=== PATIENT | male | born 1950 | race Caucasian/White ===

== ENCOUNTER 2018-06-21 10:40 | Inpatient (IN) | payer BC, OTHER ==
[~2018-06-21] VITALS: Ht 167.6 cm; Wt 70.4 kg
[2018-06-21] MEDS ORDERED: SODIUM CHLORIDE 0.9% 1000ML 1,000 ML IV ONE (10:59)
[2018-06-21] MEDS ORDERED: PIPERACILLIN/TAZOBACTAM 4.5 GM/100ML D5W IV STA (10:59)
[2018-06-21] MEDS ORDERED: DIPHTHERIA/TETANUS/PERTUSSIS 0.5 ML SYR/VIAL IM. ONE (11:00)
[2018-06-21 11:20] LABS: BASO % 0.1 %; BASO ABS # 0.01 K/uL (0-0.2); HEMATOCRIT 38.5 % (42-52); HEMOGLOBIN 13.3 g/dL (14.0-18.0); IG# 0.01 K/uL (0.00-0.02); LYMPH % 8.9 %; LYMPH ABS # 0.75 K/uL (1.2-3.4); MEAN CELL VOLUME 85.9 fL (80-100); MEAN CORPUSCULAR HEMOGLOBIN 29.7 pg (25-34); MEAN CORPUSCULAR HGB CONC 34.5 g/dl (32-36); MEAN PLATELET VOLUME 10.4 fL (7.4-10.4); MONO % 9.5 %; NEUT % 81.4 %; NEUT ABS # 6.82 K/uL (1.4-6.5); PLATELET COUNT 181 K/uL (130-400); RED CELL DISTRIBUTION WIDTH CV 14.3 % (11.5-14.5); RED CELL DISTRIBUTION WIDTH SD 44.4 fL (36.4-46.3); WHITE BLOOD COUNT 8.39 K/uL (4.8-10.8)
[2018-06-21 11:30] LABS: INR 1.1 (0.9-1.1); PTT PATIENT 24.5 SECONDS (21.0-31.0)
--- NOTE | 2018-06-21 11:31 | DIAGNOSTIC IMAGING REPORT ---
CT OF THE HEAD WITHOUT CONTRAST CLINICAL HISTORY: Fall. Headache. COMPARISON STUDY: No previous studies for comparison. TECHNIQUE: Helical axial images of the head were obtained without IV contrast. Automated exposure control was utilized for the study. A dose lowering technique was utilized adhering to the principles of ALARA. FINDINGS: Exam is mildly compromised by motion artifact. No acute intracranial hemorrhage, midline shift or mass effect is present. Ventricular system is normal. Basilar cisterns are patent. There are no extra-axial collections. Minimal white matter hypodensity suggests small vessel disease. 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 A moderate size left frontotemporal scalp contusion is noted. There is no calvarial fracture. IMPRESSION: 1. No acute intracranial findings. 2. Left frontotemporal scalp contusion. No calvarial fracture. Electronically signed by: Mj Cuenca M.D. 06/21/2018 11:30 AM Dictated Date/Time: 06/21/2018 11:27 AM
[2018-06-21 11:41] LABS: CALCIUM 9.4 mg/dl (8.5-10.1); CREATININE 0.98 mg/dl (0.60-1.40); POTASSIUM 3.8 mmol/L (3.5-5.1); TOTAL PROTEIN 7.9 gm/dl (6.4-8.2)
--- NOTE | 2018-06-21 11:50 | DIAGNOSTIC IMAGING REPORT ---
CT OF THE CERVICAL SPINE WITHOUT CONTRAST CLINICAL HISTORY: Neck pain following fall. COMPARISON STUDY: No previous studies for comparison. TECHNIQUE: Helical axial images of the cervical spine were obtained without IV contrast. Sagittal and coronal reconstructions were viewed. A dose lowering technique was utilized adhering to the principles of ALARA. FINDINGS: Alignment of the cervical spine is anatomic. Craniocervical junction is intact. There is no acute cervical spine fracture. There is extensive anterior osteophytosis of the cervical spine. Facet joints are intact. There is moderate to severe multilevel disc space narrowing. There is no prevertebral edema. There is no pneumothorax within visualized portions of the lung apices. IMPRESSION: No acute cervical spine fracture or subluxation. Electronically signed by: Mj Cuenca M.D. 06/21/2018 11:48 AM Dictated Date/Time: 06/21/2018 11:45 AM
--- NOTE | 2018-06-21 12:20 | DIAGNOSTIC IMAGING REPORT ---
CHEST ONE VIEW PORTABLE CLINICAL HISTORY: Fall. Sepsis. COMPARISON STUDY: No previous studies for comparison. FINDINGS: IVC filter projects over the right upper quadrant. Right upper quadrant surgical clips are noted. Cardiac size is at the upper limits of normal. Numerous old bilateral rib fractures are noted. There is no pneumothorax or pleural effusion. No airspace opacities are present. Patient is rotated. IMPRESSION: No acute cardiopulmonary findings. Numerous old bilateral rib fractures. No pneumothorax. Electronically signed by: Mj Cuenca M.D. 06/21/2018 12:19 PM Dictated Date/Time: 06/21/2018 12:17 PM
--- NOTE | 2018-06-21 12:21 | DIAGNOSTIC IMAGING REPORT ---
L ANKLE MIN 3 VIEWS ROUTINE CLINICAL HISTORY: fall, pain COMPARISON: None FINDINGS: Alignment of the left ankle is anatomic. There is no acute fracture. Talar dome is intact. There is mild lateral ankle soft tissue swelling. Moderate vascular calcification is present. IMPRESSION: No acute fracture or dislocation within the left ankle. Electronically signed by: Mj Cuenca M.D. 06/21/2018 12:20 PM Dictated Date/Time: 06/21/2018 12:19 PM
--- NOTE | 2018-06-21 12:22 | DIAGNOSTIC IMAGING REPORT ---
L KNEE 1 OR 2 VIEWS ROUTINE CLINICAL HISTORY: fall, pain COMPARISON: None FINDINGS: Alignment of the left knee is anatomic. There is no acute fracture or joint effusion. Spurring of the patella is noted. This is chronic. There is mild osteophytosis within the left knee. IMPRESSION: No acute fracture or joint effusion of the left knee. Electronically signed by: Mj Cuenca M.D. 06/21/2018 12:21 PM Dictated Date/Time: 06/21/2018 12:20 PM
--- NOTE | 2018-06-21 12:26 | DIAGNOSTIC IMAGING REPORT ---
PELVIS 1 OR 2 VIEW ROUTINE CLINICAL HISTORY: fall, pain COMPARISON STUDY: No previous studies for comparison. FINDINGS: The sacroiliac joints and symphysis pubis are intact. There is no acute fracture within the pelvis or the hips. There is possible left thigh soft tissue swelling. A 1.2 cm ossific/calcific density projecting superior to the greater trochanter of the left femur is age indeterminate. IMPRESSION: 1. No acute fracture within the pelvis or hips. 2. Suspected left thigh soft tissue swelling/contusion. 3. 1.2 cm calcific/ossific density projecting superior to the greater trochanter of the left femur which suggests an age indeterminate but statistically old avulsion injury. Electronically signed by: Mj Cuenca M.D. 06/21/2018 12:25 PM Dictated Date/Time: 06/21/2018 12:22 PM
--- NOTE | 2018-06-21 12:27 | DIAGNOSTIC IMAGING REPORT ---
L ELBOW MIN 3 VIEWS ROUTINE CLINICAL HISTORY: fall, pain COMPARISON: None FINDINGS: Alignment of the left elbow is anatomic. IV is incidentally noted. There is no acute fracture. Spurring of the olecranon at the insertion of the triceps is noted. There is no evidence for left elbow joint effusion. There may be dorsal proximal left forearm soft tissue swelling. IMPRESSION: No acute fracture or joint effusion of the left elbow. Electronically signed by: Mj Cuenca M.D. 06/21/2018 12:25 PM Dictated Date/Time: 06/21/2018 12:25 PM
[2018-06-21] MEDS ORDERED: SODIUM CHLORIDE 0.9% 500ML 500 ML IV STA (15:47)
[2018-06-21] MEDS ORDERED: MoRPHine SULFATE 4 MG/ML 1 ML CARP\\VIAL IV STA (15:47)
--- NOTE | 2018-06-21 15:59 | EMERGENCY ROOM VISIT NOTE ---
History Report prepared by Erin: Pamela Sim Under the Supervision of: Dr. Lance Rico M.D. 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 As per the medical attendants at [facility], the patient states he fell out of bed 3 times however, the pt reports he fell out of bed once and in the shower once this morning. He denies any LOC. He states he has been at [facility] for several days. As per nursing staff, the pt tried to get out of bed multiple times last night and fell about 3 times. HPI and ROS limited secondary to the patients mental state. The charge nurse had received a phone call earlier today stating the patient fell once last night and once this morning. Source of History: patient, nursing staff, other (medical attendants at [facility]) History Limited By: other (patient's mental state) Onset: about 4 hours waiter/waitress captain Position: head, other (upper and lower extremities) Quality: other (fall) Timing: other (after slipping ) Associated Symptoms: No LOC Review of Systems See HPI for pertinent positives & negatives. HPI and ROS limited secondary to the patient's mental state. Past Medical & Surgical Medical Problems: (1) No known problems Family History Patient reports no known family medical history. Social History Smoking Status: Unknown if Ever Smoked Smokeless Tobacco Use: Unknown Housing Status: assisted living Occupation Status: retired Current/Historical Medications Scheduled Docusate Sodium (Colace), 1 CAP PO BID Folic Acid (Folic Acid), 1 MG PO DAILY Mirtazapine (Remeron), 7.5 MG PO HS Multivitamins/Minerals (Mvi With Minerals), 1 TAB PO DAILY Olanzapine (Zyprexa), 10 MG PO HS Omeprazole (Prilosec), 20 MG PO DAILY Psyllium (Metamucil), 1 PKT PO DAILY Risperidone (Risperdal), 1 MG PO HS Tamsulosin Hcl (Flomax), 0.4 MG PO QAM Thiamine Hcl (Vitamin B-1), 100 MG PO DAILY Scheduled PRN Acetaminophen Tab (Tylenol), 650 MG PO Q4 PRN for Pain Alum & Mag Hydrox-Simethicone (Mylanta), 30 ML PO QID PRN for GASTRIC DISTRESS Magnesium Hydroxide (Milk Of Magnesia), 30 ML PO DAILY PRN for Constipation Sennosides (Senokot), 1 TAB PO Q12 PRN for Allergies Coded Allergies: No Known Allergies (Unverified , 06/21/18) Physical Exam Vital Signs Date Time Temp Pulse Resp B/P (MAP) Pulse Ox O2 Delivery O2 Flow Rate FiO2 06/21/18 16:38 86 18 110/78 100 Room Air 06/21/18 15:42 90 18 106/78 98 Room Air 06/21/18 13:32 91 18 116/86 99 Room Air 06/21/18 12:15 92 18 140/88 98 Room Air 06/21/18 11:14 99 Room Air 06/21/18 10:47 37.1 94 18 136/87 99 Room Air Physical Exam GENERAL: Patient is in no acute distress. HEENT: Mucous membranes dry. Contusions with an abrasion to the forehead. 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 No scalp hematoma. NECK: No stridor, no adenopathy, no meningismus, trachea is midline. Nontender posterior C Spine LUNGS: Clear to auscultation bilaterally, no wheeze, no rhonchi, breath sounds equal. HEART: Without murmurs gallops or rubs, regular rate and rhythm. ABDOMEN: Soft, nontender, bowel sounds positive, no hernias, no peritonitis. BACK: No contusions. Nontender spine. EXTREMITIES: Multiple areas of erythema and some areas of possible contusion to all 4 extremities. The largest areas are around the L elbow, L hip, L knee, and L ankle. No gross deformity to any extremity. Movement of the joints of the extremities causes no obvious pain. GROIN: No contusions, no erythema. NEUROLOGIC: No acute motor or sensory deficits, no focal weakness. Awake and alert. SKIN: No jaundice, no diaphoresis. Medical Decision & Procedures ER Provider Diagnostic Interpretation: Radiology results as stated below per my review and radiologist interpretation: PELVIS 1 OR 2 VIEW ROUTINE CLINICAL HISTORY: fall, pain COMPARISON STUDY: No previous studies for comparison. FINDINGS: The sacroiliac joints and symphysis pubis are intact. There is no acute fracture within the pelvis or the hips. There is possible left thigh soft tissue swelling. A 1.2 cm ossific/calcific density projecting superior to the greater trochanter of the left femur is age indeterminate. IMPRESSION: 1. No acute fracture within the pelvis or hips. 2. Suspected left thigh soft tissue swelling/contusion. 3. 1.2 cm calcific/ossific density projecting superior to the greater trochanter of the left femur which suggests an age indeterminate but statistically old avulsion injury. Electronically signed by: Mj Cuenca M.D. 06/21/2018 12:25 PM L KNEE 1 OR 2 VIEWS ROUTINE CLINICAL HISTORY: fall, pain COMPARISON: None FINDINGS: Alignment of the left knee is anatomic. There is no acute fracture or joint effusion. Spurring of the patella is noted. This is chronic. There is mild osteophytosis within the left knee. IMPRESSION: No acute fracture or joint effusion of the left knee. Electronically signed by: Mj Cuenca M.D. 06/21/2018 12:[address] OF THE HEAD WITHOUT CONTRAST CLINICAL HISTORY: Fall. Headache. COMPARISON STUDY: No previous studies for comparison. TECHNIQUE: Helical axial images of the head were obtained without IV contrast. Automated exposure control was utilized for the study. A dose lowering technique was utilized adhering to the principles of ALARA. FINDINGS: Exam is mildly compromised by motion artifact. No acute intracranial hemorrhage, midline shift or mass effect is present. Ventricular system is normal. Basilar cisterns are patent. There are no extra-axial collections. Minimal white matter hypodensity suggests small vessel disease. 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 A moderate size left frontotemporal scalp contusion is noted. There is no calvarial fracture. IMPRESSION: 1. No acute intracranial findings. 2. Left frontotemporal scalp contusion. No calvarial fracture. Electronically signed by: Mj Cuenca M.D. 06/21/2018 11:30 AM L ELBOW MIN 3 VIEWS ROUTINE CLINICAL HISTORY: fall, pain COMPARISON: None FINDINGS: Alignment of the left elbow is anatomic. IV is incidentally noted. There is no acute fracture. Spurring of the olecranon at the insertion of the triceps is noted. There is no evidence for left elbow joint effusion. There may be dorsal proximal left forearm soft tissue swelling. IMPRESSION: No acute fracture or joint effusion of the left elbow. Electronically signed by: Mj Cuenca M.D. 06/21/2018 12:25 PM CHEST ONE VIEW PORTABLE CLINICAL HISTORY: Fall. Sepsis. COMPARISON STUDY: No previous studies for comparison. FINDINGS: IVC filter projects over the right upper quadrant. Right upper quadrant surgical clips are noted. Cardiac size is at the upper limits of normal. Numerous old bilateral rib fractures are noted. There is no pneumothorax or pleural effusion. No airspace opacities are present. Patient is rotated. IMPRESSION: No acute cardiopulmonary findings. Numerous old bilateral rib fractures. No pneumothorax. Electronically signed by: Mj Cuenca M.D. 06/21/2018 12:[address] OF THE CERVICAL SPINE WITHOUT CONTRAST CLINICAL HISTORY: Neck pain following fall. COMPARISON STUDY: No previous studies for comparison. TECHNIQUE: Helical axial images of the cervical spine were obtained without IV contrast. Sagittal and coronal reconstructions were viewed. A dose lowering technique was utilized adhering to the principles of ALARA. FINDINGS: Alignment of the cervical spine is anatomic. Craniocervical junction is intact. There is no acute cervical spine fracture. There is extensive anterior osteophytosis of the cervical spine. Facet joints are intact. There is moderate to severe multilevel disc space narrowing. There is no prevertebral edema. There is no pneumothorax within visualized portions of the lung apices. IMPRESSION: No acute cervical spine fracture or subluxation. Electronically signed by: Mj Cuenca M.D. 06/21/2018 11:48 AM L ANKLE MIN 3 VIEWS ROUTINE CLINICAL HISTORY: fall, pain COMPARISON: None FINDINGS: Alignment of the left ankle is anatomic. There is no acute fracture. Talar dome is intact. There is mild lateral ankle soft tissue swelling. Moderate vascular calcification is present. IMPRESSION: No acute fracture or dislocation within the left ankle. Electronically signed by: Mj Cuenca M.D. 06/21/2018 12:20 PM Laboratory Results 06/21/18 11:08 Test 06/21/18 11:08 06/21/18 11:15 06/21/18 12:25 06/21/18 16:38 RDW Standard Deviation 44.4 fL (36.4-46.3) RDW Coefficient of Variation 14.3 % (11.5-14.5) White Blood Count 8.39 K/uL (4.8-10.8) Red Blood Count 4.48 M/uL (4.7-6.1) Hemoglobin 13.3 g/dL (14.0-18.0) Hematocrit 38.5 % (42-52) Mean Corpuscular Volume 85.9 fL (80-100) Mean Corpuscular Hemoglobin 29.7 pg (25-34) Mean Corpuscular Hemoglobin Concent 34.5 g/dl (32-36) Platelet Count 181 K/uL (130-400) Mean Platelet Volume 10.4 fL (7.4-10.4) Neutrophils (%) (Auto) 81.4 % Lymphocytes (%) (Auto) 8.9 % Monocytes (%) (Auto) 9.5 % Eosinophils (%) (Auto) 0.0 % Basophils (%) (Auto) 0.1 % Neutrophils # (Auto) 6.82 K/uL (1.4-6.5) Lymphocytes # (Auto) 0.75 K/uL (1.2-3.4) Monocytes # (Auto) 0.80 K/uL (0.11-0.59) Eosinophils # (Auto) 0.00 K/uL (0-0.5) Basophils # (Auto) 0.01 K/uL (0-0.2) Immature Granulocyte % (Auto) 0.1 % Immature Granulocyte # (Auto) 0.01 K/uL (0.00-0.02) Erythrocyte Sedimentation Rate 10 mm/hr (0-14) Prothrombin Time 11.2 SECONDS (9.0-12.0) Prothromb Time International Ratio 1.1 (0.9-1.1) Activated Partial Thromboplast Time 24.5 SECONDS (21.0-31.0) Partial Thromboplastin Ratio 0.9 Anion Gap 8.0 mmol/L (3-11) Est Creatinine Clear Calc Drug Dose 67.8 ml/min Estimated GFR () 93.4 Estimated GFR (Non- 80.6 BUN/Creatinine Ratio 25.7 (10-20) Calcium Level 9.4 mg/dl (8.5-10.1) Magnesium Level 1.8 mg/dl (1.8-2.4) Total Bilirubin 1.5 mg/dl (0.2-1) Aspartate Amino Transf (AST/SGOT) 137 U/L (15-37) Alanine Aminotransferase (ALT/SGPT) 45 U/L (12-78) Alkaline Phosphatase 115 U/L (45-117) Total Creatine Kinase 7344 U/L (39-308) C-Reactive Protein 2.85 mg/dl (0-0.29) Total Protein 7.9 gm/dl (6.4-8.2) Albumin 4.0 gm/dl (3.4-5.0) Globulin 3.9 gm/dl (2.5-4.0) Albumin/Globulin Ratio 1.0 (0.9-2) Bedside Lactic Acid Venous 1.90 mmol/L (0.90-1.70) Urine Color DK YELLOW Urine Appearance CLOUDY (CLEAR) Urine pH 5.0 (4.5-7.5) Urine Specific Ulen 1.024 (1.000-1.030) Urine Protein 1+ (NEG) Urine Glucose (UA) NEG (NEG) Urine Ketones 2+ (NEG) Urine Occult Blood 2+ (NEG) Urine Nitrite NEG (NEG) Urine Bilirubin NEG (NEG) Urine Urobilinogen NEG (NEG) Urine Leukocyte Esterase TRACE (NEG) Urine WBC (Auto) 1-5 /hpf (0-5) Urine RBC (Auto) 5-10 /hpf (0-4) Urine Hyaline Casts (Auto) 10-30 /lpf (0-5) Urine Epithelial Cells (Auto) 10-20 /lpf (0-5) Urine Bacteria (Auto) NEG (NEG) Urine Pathogenic Casts 0-3 GRANULAR CASTS /lpf (0) Laboratory results reviewed by me. Medications Administered Medications (Trade) Dose Ordered Sig/Eric Route Start Time Stop Time Status Last Admin Dose Admin Sodium Chloride 1,000 ml @ 999 mls/hr Q1H1M ONCE IV 06/21/18 10:59 06/21/18 11:59 DC 06/21/18 11:29 999 MLS/HR Piperacillin Sod/ Tazobactam Sod (Zosyn Iv) 4.5 gm ONE STAT IV 06/21/18 10:59 06/21/18 11:05 DC 06/21/18 11:29 4.5 GM Diphtheria/ Pertussis/Tetanus Vacc (Adacel Inj) 0.5 ml ONCE ONCE IM. 06/21/18 11:00 06/21/18 11:05 DC 06/21/18 11:36 0.5 ML Sodium Chloride 500 ml @ 999 mls/hr Q31M STAT IV 06/21/18 15:47 06/21/18 16:17 DC 06/21/18 15:58 999 MLS/HR Morphine Sulfate (MoRPHine SULFATE INJ) 4 mg NOW STAT IV 06/21/18 15:47 06/21/18 15:49 DC 06/21/18 15:57 4 MG ECG Per My Interpretation Indication: other (fall) Rate (beats per minute): 97 Rhythm: normal sinus Findings: RBBB, other (no ST elevation, no PVCs) ED Course 1051: The patient was evaluated in room C4. A complete history and physical exam was performed. 1059: Ordered Zosyn IV 4.5 gm IV, Sodium Chloride 1000 ml @ 999 mls/hr IV 1100: Ordered Adacel Inj 0.5 ml IM 1313: I reevaluated the patient at this time. He is resting comfortably at this time. 1324: Discussed the patient's case with Dr. Tobias, [facility] Hospitalist. The patient will be evaluated for further management. Medical Decision Differential diagnosis: Etiologies such as sepsis, bacteremia, cellulitis, intracranial injury, cervical spine injury, extremity fracture, dehydration, electrolyte imbalance, anemia, as well as others were entertained. There is no leukocytosis or worrisome anemia. Sed rate is not elevated but the CRP is slightly high. No significant electrolyte abnormality or renal failure. There were a few very subtle liver enzyme elevations. Lactic acid level was not significantly elevated making severe sepsis less likely. Total CK was elevated consistent with rhabdomyolysis. Urinalysis did not show evidence for infection. Brain CT showed no acute bleed or mass-effect. C-spine CT showed no acute fracture. EKG showed a sinus rhythm, no acute ischemia. Chest film does not show pneumonia or CHF. Pelvis, left hip, left knee and left ankle films were done, no fractures were seen. Patient received IV saline, he was given IV morphine for pain. He received IV Zosyn as antibiotic coverage. He was given an Adacel booster IM. The patient presents with several falls, the story for what actually happened is unclear, the patient is a poor historian. His contusions appeared to have some cellulitis forming. Given the rhabdomyolysis, given the cellulitis, given his frequent falls, a hospital stay is warranted. I spoke to the patient and to case management. The on-call hospitalist was consulted. Head Trauma GCS Score: 14 Medication Reconcilliation Current Medication List: was personally reviewed by me Blood Pressure Screening Patient's blood pressure: Normal blood pressure Blood pressure disposition: Did not require urgent referral Consults Time Called: 1322 Consulting Physician: Dr. Tobias [facility] Hospitalist Returned Call: [phone] Discussed the patient's case with Dr. Tobias [facility] Hospitalist. The patient will be evaluated for further management. Impression Primary Impression: Cellulitis Additional Impressions: Multiple contusions Multiple falls Dehydration Schizophrenia Rhabdomyolysis Scribe Attestation The scribe's documentation has been prepared under my direction and personally reviewed by me in its entirety. I confirm that the note above accurately reflects all work, treatment, procedures, and medical decision making performed by me. Departure Information Dispostion Being Evaluated By Hospitalist (Dr. Tobias [facility] Hospitalist) Referrals No Doctor, Assigned (PCP) Patient Instructions My [facility] Problem Qualifiers
[2018-06-21] MEDS ORDERED: MOML PO ×2 (16:29)
[2018-06-21] MEDS ORDERED: OLAN10TA11 PO ×2 (16:29)
[2018-06-21] MEDS ORDERED: SENN-63 PO ×2 (16:29)
[2018-06-21] MEDS ORDERED: PRLSR20 PO ×2 (16:29)
[2018-06-21] MEDS ORDERED: TAMS0.4C38 PO ×2 (16:29)
[2018-06-21] MEDS ORDERED: THIA100T10 PO ×2 (16:29)
[2018-06-21] MEDS ORDERED: MULT-513 PO ×2 (16:29)
[2018-06-21] MEDS ORDERED: ALUM-30 PO ×2 (16:29)
[2018-06-21] MEDS ORDERED: RISP1TAB68 PO ×2 (16:29)
[2018-06-21] MEDS ORDERED: MIRT15TA3 PO (16:29)
[2018-06-21] MEDS ORDERED: PSYL48.59 PO ×2 (16:29)
[2018-06-21] MEDS ORDERED: ACET-1693 PO ×2 (16:29)
[2018-06-21] MEDS ORDERED: FLV1 PO ×2 (16:29)
[2018-06-21] MEDS ORDERED: DOCU-94 PO ×2 (16:29)
[2018-06-21] MEDS ORDERED: MAGNESIUM HYDROXIDE SUSP 30 ML UDC PO PRN (16:45)
[2018-06-21] MEDS ORDERED: ONDANSETRON INJ 2 MG/ML 2 ML VIAL IV PRN (16:45)
[2018-06-21] MEDS ORDERED: ALUMINUM/MAGNESIUM/SIMETH (MAALOX MAX) 30 ML UDC PO PRN (16:45)
--- NOTE | 2018-06-21 17:42 | History and Physical ---
History & Physical Date & Time of Service: Jun 21, 2018 at 17:11 Chief Complaint: Fall/ Head,Arm Abrasion/Contusions Primary Care Physician: No Doctor, Assigned History of Present Illness Source: patient, hospital records, other 67 y/o M with a history of BPH, GERD, depression and psychosis. Presents from a mental health facility for multiple falls. He was transferred from the [facility] after voluntarily committing himself for depression, suicidal ideation and hallucinations. The pt exhibits an unusual affect, although he does seem to display knowledge of his medical history and awareness of his current conditions. Per the staff at the facility, he had fallen out of bed multiple times the prior dahlia and twice during the day as well. He was found on the ground, although his falls were not witnessed. He has an unusual distribution of multiple inflamed, presumably traumatized areas of skin including over his elbows, wrists, shins, forehead. There is no associated scaling or joint deformity. A skeletal survey including a head CT did not reveal any fractures, although multiple contusions are confirmed. Initial labs are notable for rhabdomyolysis. Past Medical/Surgical History 1) Psychotic disorder - reported as schizophrenia 2) Major depressive disorder with suicidal ideation 3) BPH 4) GERD 5) History of alcohol abuse Family History Patient reports no known family medical history. Mother due to lung CA Father due to [place] Social History States he quit smoking and drinking one year prior. Admits to history of alcohol abuse and has a 25 pack year smoking history. Smoking Status: Former Smoker Smokeless Tobacco Use: Unknown Occupational Status: retired Allergies Coded Allergies: No Known Allergies (Unverified , 06/21/18) Home Medications Scheduled Docusate Sodium (Colace), 1 CAP PO BID Folic Acid (Folic Acid), 1 MG PO DAILY Mirtazapine (Remeron), 7.5 MG PO HS Multivitamins/Minerals (Mvi With Minerals), 1 TAB PO DAILY Olanzapine (Zyprexa), 10 MG PO HS Omeprazole (Prilosec), 20 MG PO DAILY Psyllium (Metamucil), 1 PKT PO DAILY Risperidone (Risperdal), 1 MG PO HS Tamsulosin Hcl (Flomax), 0.4 MG PO QAM Thiamine Hcl (Vitamin B-1), 100 MG PO DAILY Scheduled PRN Acetaminophen Tab (Tylenol), 650 MG PO Q4 PRN for Pain Alum & Mag Hydrox-Simethicone (Mylanta), 30 ML PO QID PRN for GASTRIC DISTRESS Magnesium Hydroxide (Milk Of Magnesia), 30 ML PO DAILY PRN for Constipation Sennosides (Senokot), 1 TAB PO Q12 PRN for Review of Systems May be an unreliable historian Constitutional: No fever, No chills, No sweats Eyes: No worsening of vision ENT: No hearing loss, No unusual epistaxis, No nasal symptoms Respiratory: No cough, No sputum, No wheezing Cardiovascular: No chest pain, No orthopnea, No PND Abdomen: No pain, No nausea, No vomiting Musculoskeletal: + joint pain, + muscle pain (due to trauma) Genitourinary - Male: No hematuria, No dysuria Neurologic: No memory loss, No paralysis, No weakness Psychiatric: + depression symptoms, + problem reported (psychosis and SI reprted) Hematologic / Lymphatic: No abnormal bleeding/bruising Integumentary: + problem reported (multiple contusions/abrasions) Physical Exam Vital Signs Date Time Temp Pulse Resp B/P (MAP) Pulse Ox O2 Delivery O2 Flow Rate FiO2 06/21/18 16:38 86 18 110/78 100 Room Air 06/21/18 15:42 90 18 106/78 98 Room Air 06/21/18 13:32 91 18 116/86 99 Room Air 06/21/18 12:15 92 18 140/88 98 Room Air 06/21/18 11:14 99 Room Air 06/21/18 10:47 37.1 94 18 136/87 99 Room Air General Appearance: WD/WN, no apparent distress Head: + pertinent finding (COnution - L upper forehead) Eyes: normal inspection ENT: normal ENT inspection, pharynx normal Neck: supple, no JVD Respiratory/Chest: chest non-tender, lungs clear, normal breath sounds Cardiovascular: regular rate, rhythm, no edema, no gallop Abdomen/GI: normal bowel sounds, non tender, soft Back: normal inspection, no CVA tenderness Extremities/Musculoskelatal: + pertinent finding (Contusions, bruising about the extremities) 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, no motor/sensory deficits, + pertinent finding (Generally slow in answering questions, answers appropriately , chronic facial asymetry) Skin: + pertinent finding (Contusions, bruising about the extremities and head) Diagnostics Laboratory Results Results Past 24 Hours Test 06/21/18 11:08 06/21/18 11:15 06/21/18 12:25 06/21/18 16:38 Range/Units White Blood Count 8.39 4.8-10.8 K/uL Red Blood Count 4.48 4.7-6.1 M/uL Hemoglobin 13.3 14.0-18.0 g/dL Hematocrit 38.5 42-52 % Mean Corpuscular Volume 85.9 80-100 fL Mean Corpuscular Hemoglobin 29.7 25-34 pg Mean Corpuscular Hemoglobin Concent 34.5 32-36 g/dl Platelet Count 181 130-400 K/uL Mean Platelet Volume 10.4 7.4-10.4 fL Neutrophils (%) (Auto) 81.4 % Lymphocytes (%) (Auto) 8.9 % Monocytes (%) (Auto) 9.5 % Eosinophils (%) (Auto) 0.0 % Basophils (%) (Auto) 0.1 % Neutrophils # (Auto) 6.82 1.4-6.5 K/uL Lymphocytes # (Auto) 0.75 1.2-3.4 K/uL Monocytes # (Auto) 0.80 0.11-0.59 K/uL Eosinophils # (Auto) 0.00 0-0.5 K/uL Basophils # (Auto) 0.01 0-0.2 K/uL RDW Standard Deviation 44.4 36.4-46.3 fL RDW Coefficient of Variation 14.3 11.5-14.5 % Immature Granulocyte % (Auto) 0.1 % Immature Granulocyte # (Auto) 0.01 0.00-0.02 K/uL Erythrocyte Sedimentation Rate 10 0-14 mm/hr Prothrombin Time 11.2 9.0-12.0 SECONDS Prothromb Time International Ratio 1.1 0.9-1.1 Activated Partial Thromboplast Time 24.5 21.0-31.0 SECONDS Partial Thromboplastin Ratio 0.9 Sodium Level 141 136-145 mmol/L Potassium Level 3.8 3.5-5.1 mmol/L Chloride Level 109 98-107 mmol/L Carbon Dioxide Level 24 21-32 mmol/L Anion Gap 8.0 3-11 mmol/L Blood Urea Nitrogen 25 7-18 mg/dl Creatinine 0.98 0.60-1.40 mg/dl Est Creatinine Clear Calc Drug Dose 67.8 ml/min Estimated GFR () 93.4 Estimated GFR (Non- 80.6 BUN/Creatinine Ratio 25.7 10-20 Random Glucose 109 70-99 mg/dl Calcium Level 9.4 8.5-10.1 mg/dl Magnesium Level 1.8 1.8-2.4 mg/dl Total Bilirubin 1.5 0.2-1 mg/dl Aspartate Amino Transf (AST/SGOT) 137 15-37 U/L Alanine Aminotransferase (ALT/SGPT) 45 12-78 U/L Alkaline Phosphatase 115 45-117 U/L Total Creatine Kinase 7344 39-308 U/L C-Reactive Protein 2.85 0-0.29 mg/dl Total Protein 7.9 6.4-8.2 gm/dl Albumin 4.0 3.4-5.0 gm/dl Globulin 3.9 2.5-4.0 gm/dl Albumin/Globulin Ratio 1.0 0.9-2 Bedside Lactic Acid Venous 1.90 0.90-1.70 mmol/L Urine Color DK YELLOW Urine Appearance CLOUDY CLEAR Urine pH 5.0 4.5-7.5 Urine Specific [place] 1.024 1.000-1.030 Urine Protein 1+ NEG Urine Glucose (UA) NEG NEG Urine Ketones 2+ NEG Urine Occult Blood 2+ NEG Urine Nitrite NEG NEG Urine Bilirubin NEG NEG Urine Urobilinogen NEG NEG Urine Leukocyte Esterase TRACE NEG Urine WBC (Auto) 1-5 0-5 /hpf Urine RBC (Auto) 5-10 0-4 /hpf Urine Hyaline Casts (Auto) 10-30 0-5 /lpf Urine Epithelial Cells (Auto) 10-20 0-5 /lpf Urine Bacteria (Auto) NEG NEG Urine Pathogenic Casts 0-3 GRANULAR CASTS 0 /lpf Microbiology Results 06/21/18 Blood Culture, Received Pending 06/21/18 Blood Culture, Received Pending Diagnostic Radiology Head CT: . Left frontotemporal scalp contusion. No calvarial fracture. XR elbow: . No fracture. There may be dorsal proximal left forearm soft tissue swelling. Ankle XR: Mild lateral ankle soft tissue swelling. Moderate vascular calcification is present. Impression Assessment and Plan 67 y/o M with a history of BPH, GERD, depression and psychosis. Presents from a mental health facility for multiple falls. He was transferred from the [facility] after voluntarily committing himself for depression, suicidal ideation and hallucinations. The pt exhibits an unusual affect, although he does seem to display knowledge of his medical history and awareness of his current conditions. Per the staff at the facility, he had fallen out of bed multiple times the prior dahlia and twice during the day as well. He was found on the ground, although his falls were not witnessed. He has an unusual distribution of multiple inflamed, presumably traumatized areas of skin including over his elbows, wrists, shins, forehead. There is no associated scaling or joint deformity. A skeletal survey including a head CT did not reveal any fractures, although multiple contusions are confirmed. Initial labs are notable for rhabdomyolysis. 1) Falls and contusions - the distribution of injury is suspicious for self- inflicted injury. All injured areas are accessible to the pt. He would have BL contusions encompassing the entirety of both shins due to simple falls. We will place the pt on one to one obs. PT/OT will be consulted to assess his gait. It would be prudent to discuss this possibility with the psychiatrist at his facility prior to discharging the pt. We had considered a rheumatic condition to explain his findings, however, imaging does appear to confirm soft tissue trauma. It is also worth considering that he may be developing some cellulitis over the traumatized areas which are warm to touch. He does have a slightly elevated lactic acid which may be due to dehydration. He received Zosyn in the ER. I have outlined the majority of affected areas and we would consider further antibiotic treatment if there is spread, or if he develops leukocytosis or a fever. 2) Rhabdo - IVF provided, electrolytes will be trended - this is mild to moderate rhabdo and unlikely to progress 3) Psychosis - depression - he was recently removed from 1 to 1 obs at the facility and is improving in this regard. We have continued 1 to 1 due to suspicion of self harm. We will continue his Zyprexa, Risperdal and Remeron. 4) BPH - cont Flomax 5) GERD - cont PPi Full code - SCDs total time for this admit including review of labs, meds, imaging, records - discussion with pt and ER attending - 40 min Resuscitation Status VTE Prophylaxis Will order VTE Prophylaxis: Yes
[2018-06-21 18:00] LABS: HEMATOCRIT 34.7 % (42-52); MEAN CELL VOLUME 85.9 fL (80-100); MEAN CORPUSCULAR HEMOGLOBIN 29.7 pg (25-34); MEAN CORPUSCULAR HGB CONC 34.6 g/dl (32-36); MEAN PLATELET VOLUME 10.1 fL (7.4-10.4); PLATELET COUNT 161 K/uL (130-400); RED CELL DISTRIBUTION WIDTH CV 14.4 % (11.5-14.5); RED CELL DISTRIBUTION WIDTH SD 44.7 fL (36.4-46.3); WHITE BLOOD COUNT 6.95 K/uL (4.8-10.8)
[2018-06-21] MEDS ORDERED: POLYETHYLENE (MIRALAX) 17 GM PACK PO PRN (18:00)
[2018-06-21 18:11] VITALS: BP 133/79; PULSE 89; O2SAT 95; Ht 167.6 cm; Wt 70.4 kg
[2018-06-21] MEDS: SODIUM CHLORIDE 0.9% 1000ML 1,000 ML IV SCH (18:31)
[2018-06-21 18:43] LABS: CALCIUM 8.2 mg/dl (8.5-10.1); CREATININE 0.84 mg/dl (0.60-1.40); POTASSIUM 3.5 mmol/L (3.5-5.1)
[2018-06-21] MEDS: ACETAMINOPHEN 325 MG TAB PO PRN (19:53)
[2018-06-21] MEDS: DOCUSATE SODIUM 100 MG CAP PO SCH (19:53)
[2018-06-21] MEDS: RISPERIDONE 1 MG TAB PO SCH (19:53)
[2018-06-21] MEDS: MIRTAZAPINE TAB 15 MG TAB PO SCH (19:53)
[2018-06-21] MEDS: OLANZAPINE 10 MG TAB PO SCH (19:53)
[2018-06-21 23:00] VITALS: BP 137/79; PULSE 18; PULSE 74; TEMP 36.5; O2SAT 91
[2018-06-21] MEDS: MoRPHine SULFATE 2 MG/ML CARP IV PRN (23:06)
[2018-06-22 01:18] LABS: CALCIUM 7.8 mg/dl (8.5-10.1); CREATININE 0.99 mg/dl (0.60-1.40); POTASSIUM 3.2 mmol/L (3.5-5.1)
[2018-06-22] MEDS: SODIUM CHLORIDE 0.9% 1000ML 1,000 ML IV SCH ×2 (02:05→08:01)
[2018-06-22 07:13] LABS: CALCIUM 7.5 mg/dl (8.5-10.1); CREATININE 0.87 mg/dl (0.60-1.40); PHOSPHORUS 2.3 mg/dl (2.5-4.9)
[2018-06-22 07:25] VITALS: BP 109/71; PULSE 95; TEMP 36.6; O2SAT 98
[2018-06-22 08:00] VITALS: O2SAT 98
[2018-06-22] MEDS: PANTOprazole SOD 40 MG TAB PO SCH (08:02)
[2018-06-22] MEDS: DOCUSATE SODIUM 100 MG CAP PO SCH ×2 (08:02→19:51)
[2018-06-22] MEDS: TAMSULOSIN HCL 0.4 MG CAP PO SCH (08:06)
[2018-06-22] MEDS: PSYLLIUM 58.6% PWD PACK S\\F PO SCH (08:06)
[2018-06-22] MEDS: THIAMINE HCL 100 MG TAB PO SCH (08:06)
--- NOTE | 2018-06-22 08:39 | Progress Note ---
Subjective Date of Service: Jun 22, 2018. Subjective this pt is improving but nurses reported that last pm was having some visual hallucinations. pt did not progress with concerns for cellulitis, pt has no new issues but is planning on retuning to [place] area, Case management is concerned to have pt home without good local support. Pt has given name of his daughter Problem List Medical Problems: (1) Cellulitis Status: Acute (2) Dehydration Status: Acute (3) Multiple contusions Status: Acute (4) Multiple falls Status: Acute (5) Rhabdomyolysis Status: Acute (6) Schizophrenia Status: Acute Review of Systems Constitutional: + weakness, + fatigue, No fever, No chills Respiratory: No cough, No shortness of breath Cardiac: No chest pain, No edema Abdomen: No pain, No nausea, No vomiting, No diarrhea Psychiatric: + depression symptoms, + anxiety Heme: + abnormal bleeding/bruising, No clotting problems Objective Vital Signs Date Time Temp Pulse Resp B/P (MAP) Pulse Ox O2 Delivery O2 Flow Rate FiO2 06/22/18 07:25 36.6 95 16 109/71 (84) 98 06/21/18 23:00 36.5 74 18 137/79 (98) 91 Room Air 06/21/18 22:38 Room Air 06/21/18 18:11 89 21 133/79 95 Room Air 06/21/18 17:36 95 18 111/76 98 Room Air 06/21/18 16:38 86 18 110/78 100 Room Air 06/21/18 15:42 90 18 106/78 98 Room Air 06/21/18 13:32 91 18 116/86 99 Room Air 06/21/18 12:15 92 18 140/88 98 Room Air 06/21/18 11:14 99 Room Air 06/21/18 10:47 37.1 94 18 136/87 99 Room Air Physical Exam General Appearance: WD/WN, + mild distress Eyes: normal inspection, sclerae normal Neck: supple, no JVD Respiratory/Chest: chest non-tender, lungs clear, normal breath sounds Cardiovascular: regular rate, rhythm, no murmur Abdomen: normal bowel sounds, non tender, soft Neurologic/Psychiatric: alert, oriented x 3 Skin: + pertinent finding (bruising and wounds with different stages of healing ) Laboratory Results Last 24 Hours Test 06/21/18 11:08 06/21/18 11:15 06/21/18 12:25 06/21/18 17:48 White Blood Count 8.39 K/uL Red Blood Count 4.48 M/uL Hemoglobin 13.3 g/dL Hematocrit 38.5 % Mean Corpuscular Volume 85.9 fL Mean Corpuscular Hemoglobin 29.7 pg Mean Corpuscular Hemoglobin Concent 34.5 g/dl Platelet Count 181 K/uL Mean Platelet Volume 10.4 fL Neutrophils (%) (Auto) 81.4 % Lymphocytes (%) (Auto) 8.9 % Monocytes (%) (Auto) 9.5 % Eosinophils (%) (Auto) 0.0 % Basophils (%) (Auto) 0.1 % Neutrophils # (Auto) 6.82 K/uL Lymphocytes # (Auto) 0.75 K/uL Monocytes # (Auto) 0.80 K/uL Eosinophils # (Auto) 0.00 K/uL Basophils # (Auto) 0.01 K/uL RDW Standard Deviation 44.4 fL RDW Coefficient of Variation 14.3 % Immature Granulocyte % (Auto) 0.1 % Immature Granulocyte # (Auto) 0.01 K/uL Erythrocyte Sedimentation Rate 10 mm/hr Prothrombin Time 11.2 SECONDS Prothromb Time International Ratio 1.1 Activated Partial Thromboplast Time 24.5 SECONDS Partial Thromboplastin Ratio 0.9 Sodium Level 141 mmol/L Potassium Level 3.8 mmol/L Chloride Level 109 mmol/L Carbon Dioxide Level 24 mmol/L Anion Gap 8.0 mmol/L Blood Urea Nitrogen 25 mg/dl Creatinine 0.98 mg/dl Est Creatinine Clear Calc Drug Dose 67.8 ml/min Estimated GFR () 93.4 Estimated GFR (Non- 80.6 BUN/Creatinine Ratio 25.7 Random Glucose 109 mg/dl Calcium Level 9.4 mg/dl Magnesium Level 1.8 mg/dl Total Bilirubin 1.5 mg/dl Aspartate Amino Transf (AST/SGOT) 137 U/L Alanine Aminotransferase (ALT/SGPT) 45 U/L Alkaline Phosphatase 115 U/L Total Creatine Kinase 7344 U/L C-Reactive Protein 2.85 mg/dl Total Protein 7.9 gm/dl Albumin 4.0 gm/dl Globulin 3.9 gm/dl Albumin/Globulin Ratio 1.0 Bedside Lactic Acid Venous 1.90 mmol/L Urine Color DK YELLOW Urine Appearance CLOUDY Urine pH 5.0 Urine Specific [place] 1.024 Urine Protein 1+ Urine Glucose (UA) NEG Urine Ketones 2+ Urine Occult Blood 2+ Urine Nitrite NEG Urine Bilirubin NEG Urine Urobilinogen NEG Urine Leukocyte Esterase TRACE Urine WBC (Auto) 1-5 /hpf Urine RBC (Auto) 5-10 /hpf Urine Hyaline Casts (Auto) 10-30 /lpf Urine Epithelial Cells (Auto) 10-20 /lpf Urine Bacteria (Auto) NEG Urine Pathogenic Casts 0-3 GRANULAR CASTS /lpf Lactic Acid Level 0.8 mmol/L Test 06/21/18 17:50 06/22/18 00:27 06/22/18 06:07 White Blood Count 6.95 K/uL Red Blood Count 4.04 M/uL Hemoglobin 12.0 g/dL Hematocrit 34.7 % Mean Corpuscular Volume 85.9 fL Mean Corpuscular Hemoglobin 29.7 pg Mean Corpuscular Hemoglobin Concent 34.6 g/dl RDW Standard Deviation 44.7 fL RDW Coefficient of Variation 14.4 % Platelet Count 161 K/uL Mean Platelet Volume 10.1 fL Erythrocyte Sedimentation Rate 5 mm/hr Sodium Level 143 mmol/L 142 mmol/L 142 mmol/L Potassium Level 3.5 mmol/L 3.2 mmol/L 3.0 mmol/L Chloride Level 110 mmol/L 110 mmol/L 110 mmol/L Carbon Dioxide Level 24 mmol/L 23 mmol/L 22 mmol/L Anion Gap 9.0 mmol/L 9.0 mmol/L 10.0 mmol/L Blood Urea Nitrogen 20 mg/dl 19 mg/dl 14 mg/dl Creatinine 0.84 mg/dl 0.99 mg/dl 0.87 mg/dl Est Creatinine Clear Calc Drug Dose 79.1 ml/min 67.1 ml/min 76.3 ml/min Estimated GFR () 106.5 92.2 105.0 Estimated GFR (Non- 91.9 79.6 90.6 BUN/Creatinine Ratio 23.5 19.5 15.9 Random Glucose 104 mg/dl 98 mg/dl 83 mg/dl Calcium Level 8.2 mg/dl 7.8 mg/dl 7.5 mg/dl Phosphorus Level 3.0 mg/dl 2.0 mg/dl 2.3 mg/dl Magnesium Level 1.8 mg/dl 1.8 mg/dl Total Creatine Kinase 6529 U/L 6411 U/L Assessment and Plan 67 y/o M Presents from a mental health facility for multiple unwitnessed falls , has a history of BPH, GERD, depression and psychosis. A skeletal survey including a head CT did not reveal any fractures, although multiple contusions are confirmed. Initial labs are notable for rhabdomyolysis. He was transferred from the [facility] after voluntarily committing himself for depression, suicidal ideation and hallucinations. Falls and contusions - the distribution of injury is suspicious for self- inflicted injury. PT/OT will be consulted to assess his gait. Possible Cellulitis associated with his trauma, He received Zosyn in the ER. Outlining of the majority of affected areas on admission and consider further antibiotic treatment if there is spread, or if he develops leukocytosis or a fever. Rhabdomyolysis from tissue trauma - IVF provided, electrolytes will be trended - this is mild to moderate rhabdo and unlikely to progress Psychosis - depression - he was recently removed from 1 to 1 obs at the facility and is improving in this regard. We have continued 1 to 1 due to suspicion of self harm. We will continue his Zyprexa, Risperdal and Remeron. BPH - cont Flomax GERD - cont PPi Full code - SCDs
[2018-06-22] MEDS: NSS + 20MEQ KCL 1000ML 1,000 ML IV SCH ×2 (10:57→19:51)
[2018-06-22 15:50] VITALS: BP 95/65; PULSE 88; TEMP 36.9; O2SAT 100
[2018-06-22] MEDS: MIRTAZAPINE TAB 15 MG TAB PO SCH (19:51)
[2018-06-22] MEDS: RISPERIDONE 1 MG TAB PO SCH (19:51)
[2018-06-22] MEDS: OLANZAPINE 10 MG TAB PO SCH (19:51)
[2018-06-22] MEDS: POTASSIUM CHLORIDE 20 MEQ TABCR PO SCH (19:52)
[2018-06-22] MEDS: MoRPHine SULFATE 2 MG/ML CARP IV PRN (23:28)
[2018-06-22 23:33] VITALS: BP 114/73; PULSE 97; TEMP 37.1; O2SAT 97
[2018-06-23] MEDS: NSS + 20MEQ KCL 1000ML 1,000 ML IV SCH (05:52)
[2018-06-23 07:30] VITALS: BP 103/65; PULSE 87; TEMP 37; O2SAT 96
[2018-06-23] MEDS: PSYLLIUM 58.6% PWD PACK S\\F PO SCH (07:48)
[2018-06-23] MEDS: POTASSIUM CHLORIDE 20 MEQ TABCR PO SCH ×2 (07:48→20:23)
[2018-06-23] MEDS: PANTOprazole SOD 40 MG TAB PO SCH (07:49)
[2018-06-23] MEDS: TAMSULOSIN HCL 0.4 MG CAP PO SCH (07:49)
[2018-06-23] MEDS: THIAMINE HCL 100 MG TAB PO SCH (07:49)
[2018-06-23] MEDS: DOCUSATE SODIUM 100 MG CAP PO SCH ×2 (07:49→20:22)
[2018-06-23 08:00] VITALS: O2SAT 96
[2018-06-23 09:43] LABS: CALCIUM 7.6 mg/dl (8.5-10.1); CREATININE 0.67 mg/dl (0.60-1.40); POTASSIUM 3.8 mmol/L (3.5-5.1)
[2018-06-23 15:06] VITALS: BP 143/81; PULSE 118; TEMP 37.9; O2SAT 94
--- NOTE | 2018-06-23 15:39 | Progress Note ---
Subjective Date of Service: Jun 23, 2018. Subjective the pt is slightly confused, otherwise is feeling well but not willing to committ to a firm disposition Problem List Medical Problems: (1) Cellulitis Status: Acute (2) Dehydration Status: Acute (3) Multiple contusions Status: Acute (4) Multiple falls Status: Acute (5) Rhabdomyolysis Status: Acute (6) Schizophrenia Status: Acute Review of Systems Constitutional: + weakness, + fatigue, No fever, No chills Respiratory: No cough, No sputum Cardiac: No chest pain, No orthopnea Abdomen: No pain, No nausea, No vomiting Neurologic: + weakness, + balance problems, No memory loss Psychiatric: No depression symptoms, No anxiety Objective Vital Signs Date Time Temp Pulse Resp B/P (MAP) Pulse Ox O2 Delivery O2 Flow Rate FiO2 06/23/18 15:06 37.9 118 18 143/81 (101) 94 Room Air 06/23/18 08:00 96 Room Air 06/23/18 07:30 37.0 87 18 103/65 (78) 96 Room Air 06/22/18 23:33 37.1 97 20 114/73 (87) 97 Room Air 06/22/18 21:25 Room Air 06/22/18 15:50 36.9 88 18 95/65 (75) 100 Room Air Physical Exam General Appearance: + thin Eyes: normal inspection, sclerae normal Respiratory/Chest: chest non-tender, lungs clear, normal breath sounds Cardiovascular: regular rate, rhythm, no murmur Abdomen: normal bowel sounds, non tender, soft Extremities: normal range of motion, no pedal edema Neurologic/Psychiatric: alert, oriented x 3 Skin: + pertinent finding (bruises in various states of healing) Laboratory Results Last 24 Hours Test 06/22/18 18:02 06/23/18 05:43 06/23/18 05:44 Total Creatine Kinase 5388 U/L 3328 U/L Sodium Level 146 mmol/L Potassium Level 3.8 mmol/L Chloride Level 118 mmol/L Carbon Dioxide Level 22 mmol/L Anion Gap 6.0 mmol/L Blood Urea Nitrogen 9 mg/dl Creatinine 0.67 mg/dl Est Creatinine Clear Calc Drug Dose 99.1 ml/min Estimated GFR () 116.9 Estimated GFR (Non- 100.8 BUN/Creatinine Ratio 13.6 Random Glucose 94 mg/dl Calcium Level 7.6 mg/dl Assessment and Plan 67 y/o M Presents from a mental health facility for multiple unwitnessed falls , has a history of BPH, GERD, depression and psychosis. A skeletal survey including a head CT did not reveal any fractures, although multiple contusions are confirmed. Initial labs are notable for rhabdomyolysis. He was transferred from the [facility] after voluntarily committing himself for depression, suicidal ideation and hallucinations. Falls and contusions - the distribution of injury is suspicious for self- inflicted injury. PT/OT will be consulted to assess his gait. will need some occupational therapy assistant device Possible Cellulitis associated with his trauma, Has been ruled out Rhabdomyolysis from tissue trauma - IVF cotinues, mild to moderate rhabdo and no renal affects Psychosis - depression - he arrives on Zyprexa, Risperdal and Remeron. will have psychiatry evaluation to determine fitness to make decisions and help with medical management BPH - cont Flomax GERD - cont PPi Full code - SCDs
[2018-06-23 15:57] VITALS: PULSE 118; TEMP 39.4
[2018-06-23] MEDS: ACETAMINOPHEN 325 MG TAB PO PRN (16:05)
--- NOTE | 2018-06-23 16:49 | DIAGNOSTIC IMAGING REPORT ---
TWO VIEW CHEST CLINICAL HISTORY: Pneumonia. FINDINGS: AP and lateral chest radiographs are compared to study dated 06/21/2018. The AP view is degraded by patient rotation. There is volume loss in the right lung and rightward shift of the mediastinum suggesting previous right-sided pulmonary resection. The cardiomediastinal silhouette is unremarkable. Chronic interstitial thickening similar to previous. There are right perihilar airspace opacities, best on the lateral views. No large pleural effusion is identified. There is no pneumothorax. The skeletal structures are osteopenic. There are numerous chronic appearing bilateral rib fractures. IVC filter is seen below the right hemidiaphragm. Numerous surgical clips are present in the right upper quadrant. IMPRESSION: 1. Findings suggest previous right-sided pulmonary resection. 2. Hazy airspace opacities are identified in the right perihilar region, and are best on the lateral view. An infectious/inflammatory pneumonitis could have this appearance. Clinical correlation will be required and radiographic follow-up to resolution is recommended. Electronically signed by: Lance Vicente M.D. 06/23/2018 4:48 PM Dictated Date/Time: 06/23/2018 4:44 PM
[2018-06-23 18:07] LABS: ALBUMIN 2.9 gm/dl (3.4-5.0); CALCIUM 7.9 mg/dl (8.5-10.1); CREATININE 1.04 mg/dl (0.60-1.40); POTASSIUM 3.9 mmol/L (3.5-5.1); TOTAL PROTEIN 6.5 gm/dl (6.4-8.2)
[2018-06-23 18:13] VITALS: TEMP 38.2
[2018-06-23] MEDS: OLANZAPINE 10 MG TAB PO SCH (20:23)
[2018-06-23] MEDS ORDERED: RISPERIDONE 0.5 MG TAB PO SCH (21:00)
[2018-06-23 22:54] VITALS: BP 131/83; PULSE 94; TEMP 36.8; O2SAT 97
[2018-06-24 07:07] VITALS: BP 129/78; PULSE 80; TEMP 36.9; O2SAT 97
[2018-06-24 07:16] LABS: CALCIUM 7.8 mg/dl (8.5-10.1); CREATININE 0.67 mg/dl (0.60-1.40); POTASSIUM 3.6 mmol/L (3.5-5.1)
[2018-06-24] MEDS: THIAMINE HCL 100 MG TAB PO SCH (08:20)
[2018-06-24] MEDS: TAMSULOSIN HCL 0.4 MG CAP PO SCH (08:20)
[2018-06-24] MEDS: PANTOprazole SOD 40 MG TAB PO SCH (08:21)
[2018-06-24] MEDS: PSYLLIUM 58.6% PWD PACK S\\F PO SCH (08:21)
[2018-06-24] MEDS: DOCUSATE SODIUM 100 MG CAP PO SCH ×2 (08:21→20:55)
[2018-06-24] MEDS: LEVOFLOXACIN 750 MG TAB PO SCH (11:45)
--- NOTE | 2018-06-24 13:18 | Psychiatric Consultation ---
Consultation Date of Consultation Jun 24, 2018. Identifying Data 67 year old Male from [place] who is living in a Personal Ch[facility] who has schizoaffective disorder who was transferred from the [facility] (psych admission with a 201 voluntary commitment for SI with plan with worsened depression) to [facility] medical unit due to falls and rhabdomyolysis. Pt continues to have SI with plan to jump off a bridge with ongoing depressive symptoms. Petitioning statement dated 06/24/18 on chart due to his SI concerns. Psychiatry consulted over concerns about clarifying disposition once medically cleared given psychiatric presentation. Chief Complaint "depressed". History of Present Illness admitted to the [facility] on a 201 voluntary commitment with schizoaffective depressive type with worsened depression and SI with plan to jump off a bridge. Pt was admitted medically to [facility] for rhabdomyolysis and multiple falls. Pt continues to feel depressed, have a sense of hopeless ness and worthlessness sand SI with plan to jump off a bridge, contracts for safety while in the hospital. He is open to returning to the [facility] for psychiatric inpt treatment with report in the medical records that [facility] is prepared to pick him up and bring him back to the [facility] once medically cleared. He denied HI. He endorsed having to fight "demons" but denied doing so today. He endorsed AH in the recent past but not the past few days. He denied VH. He endorsed being somewhat paranoid the other days but not today. He is taking Zyprexa 10mg hs and with review of records from the [facility], risperdal was added at 1mg hs, with it being lowered while at [facility] to 0.5mg hs. He was placed on remeron 7.5mg hs while at [facility], replacing Lexapro. Pt also has h/o sleep difficulties and poor appetite. appetite is still on low side the past couple days. Pt quit drinking and smoking 1 year ago, h/o alcohol abuse and extensive h/o smoking prior to one year ago aggravating factor, refused to her daughter about 2 weeks and she is upset with him from [facility], living in personal snf, moved in about a month ago and not liking it Past Psychiatric History Current OP Treatment: psychiatrist (Lance Vallejo) Prior Psych Hospitalizations: [facility] (June 2018, transfered from this admission to [facility] medical unit), other ([place] ) Access to a Gun: No Suicide Attempts: Yes (20 years ago, was on bridge attempting to jump, others intervened ) Past Medication Trials zolfot, haldol, klonopin past trials as was lexapro which was tapered off early in [facility] admission Past Medical/Surgical History (1) Rhabdomyolysis (2) Multiple falls Allergies Allergies: Coded Allergies: No Known Allergies (Unverified , 06/21/18) Home Medications Scheduled Docusate Sodium (Colace), 1 CAP PO BID Folic Acid (Folic Acid), 1 MG PO DAILY Mirtazapine (Remeron), 7.5 MG PO HS Multivitamins/Minerals (Mvi With Minerals), 1 TAB PO DAILY Olanzapine (Zyprexa), 10 MG PO HS Omeprazole (Prilosec), 20 MG PO DAILY Psyllium (Metamucil), 1 PKT PO DAILY Risperidone (Risperdal), 1 MG PO HS Tamsulosin Hcl (Flomax), 0.4 MG PO QAM Thiamine Hcl (Vitamin B-1), 100 MG PO DAILY Scheduled PRN Acetaminophen Tab (Tylenol), 650 MG PO Q4 PRN for Pain Alum & Mag Hydrox-Simethicone (Mylanta), 30 ML PO QID PRN for GASTRIC DISTRESS Magnesium Hydroxide (Milk Of Magnesia), 30 ML PO DAILY PRN for Constipation Sennosides (Senokot), 1 TAB PO Q12 PRN for Family History Patient reports no known family medical history. Alcohol Use Alcohol Use In Past 12 Months: No h/o alcohol abuse Smoking Use Smoking Status: Former Smoker been a year since smoked Personal History Education: graduated from high school Work History: worked in a [employer] Children: daughter aged 36 Spiritual Affiliation: "I alecia in [facility]" Legal History: none Psychological Trauma History: Denies Hx Traumatic Event Review of Systems Constitutional: fever (yesterday), other (fatigue) Cardiovascular: denies: no symptoms reported, see HPI, chest pain, chest tightness, chest pressure, diaphoresis, palpitations, syncope, other Gastrointestinal: denies no symptoms reported, denies see HPI, denies abdominal pain, denies constipation, denies diarrhea, denies nausea, denies vomiting, denies other Musculoskeletal: joint pain (L hip ) Hematologic / Lymphatic: easy bleeding, easy bruising Examination Vital Signs Vital Signs Past 12 Hours Date Time Temp Pulse Resp B/P (MAP) Pulse Ox O2 Delivery O2 Flow Rate FiO2 06/24/18 09:00 Room Air 06/24/18 07:07 36.9 80 18 129/78 (95) 97 Laboratory Results Last 24 Hours Test 06/23/18 17:25 06/24/18 06:17 Sodium Level 142 mmol/L 143 mmol/L Potassium Level 3.9 mmol/L 3.6 mmol/L Chloride Level 114 mmol/L 112 mmol/L Carbon Dioxide Level 20 mmol/L 23 mmol/L Anion Gap 8.0 mmol/L 8.0 mmol/L Blood Urea Nitrogen 8 mg/dl 9 mg/dl Creatinine 1.04 mg/dl 0.67 mg/dl Est Creatinine Clear Calc Drug Dose 63.9 ml/min 99.1 ml/min Estimated GFR () 86.9 116.9 Estimated GFR (Non- 75.0 100.8 BUN/Creatinine Ratio 7.9 13.3 Random Glucose 112 mg/dl 99 mg/dl Calcium Level 7.9 mg/dl 7.8 mg/dl Total Bilirubin 0.8 mg/dl Aspartate Amino Transf (AST/SGOT) 79 U/L Alanine Aminotransferase (ALT/SGPT) 41 U/L Alkaline Phosphatase 82 U/L Total Protein 6.5 gm/dl Albumin 2.9 gm/dl Globulin 3.6 gm/dl Albumin/Globulin Ratio 0.8 Total Creatine Kinase 1735 U/L Mental Examination During interview pt is: alert and oriented, cooperative Appearance: other (wearing hospital gown laying in hospital bed ) Motor behavior is: other (laying in hospital bed) Speech: normal in rate, rhythm & volume Affect: mood congruent, depressed, flat Mood is: depressed Thought process: goal directed, clear, coherent Thought content: delusions (mentioned fight a demon when assessed by nurse liaison and agree that deals with demon when mortgage underwriter inquired), hopelessness, worthlessness Suicidal thought are: present, Plan: present (jump off a bridge) Homicidal thoughts are: denied Hallucinations: denies auditory, denies visual Intelligence estimated to be: average Insight: impaired Judgement: impaired Impression / Recommendations Impression 67 yr old male from [facility], with schizoaffective disorder depressed type, who was admitted medically to [facility] for falls and rhabdomyolysis transferred from the [facility] while on a 201 vol. commitment psychiatric admission for SI with plan to jump off a bridge in context of worsened depression. Pt living in a persona snf pat month and does not like there. his daughter is having difficulties and pt refused to help her and she mad at him and this was a main aggravating factor for pt's current psychiatric presentation per pt. He was recently taken off lexapro and placed on remeron 7.5mg hs while at the [facility]. His Zyprexa 10mg hs was continued at the [facility] and risperdal 1mg hs was added while he was there as well. Since being at [facility], Risperdal was lowered to 0.5mg and remeron and Zyprexa was continued unchanged to date. Will stop risperdal given concerns of polypharmacy, multiple atypical antipsychotics maco given his medical concerns. Risk Factors Assessment Male: Yes : Yes /single/: Yes Access to guns: No Health problems: Yes Mental Health Diagnoses: Yes Previous attempt: Yes Previous psychiatric stay: Yes Hopelessness: Yes Recommendations (1) Schizoaffective disorder 06/24 - q15 minute checks given SI with contract for safety within hospital - reviewed records including newly obtained records from prior [place] psych admission - given potential for adding to adverse reactions will stop risperdal and maintain Zyprexa at 10mg hs, risperdal was already lowered to 0.5mg hs from 1mg hs dose. maintained remeron 7.5mg hs for now -per notes, [facility] is planning to take pt back with arranging transportation to the [facility] once pt is medically cleared, with plan of assessment once at the [facility] to determine current level of care that is appropriate at that time. There is a petitioning statement on the chart given his SI with plan shared to Ernesto Doran on 06/24. - reviewed with attending Dr. Flores and Suha pt's nurse
[2018-06-24 15:02] VITALS: BP 126/80; PULSE 96; TEMP 37.6; O2SAT 97
--- NOTE | 2018-06-24 17:23 | Progress Note ---
Subjective Date of Service: Jun 24, 2018. Subjective this pt is doing well and maybe able to move to [facility] once fever resolves Problem List Medical Problems: (1) Cellulitis Status: Acute (2) Dehydration Status: Acute (3) Multiple contusions Status: Acute (4) Multiple falls Status: Acute (5) Rhabdomyolysis Status: Acute (6) Schizophrenia Status: Acute Review of Systems Constitutional: No fever, No chills, No weakness Respiratory: No cough, No wheezing Cardiac: No chest pain, No PND, No edema Abdomen: No pain, No nausea, No vomiting Musculoskeletal: No joint pain, No muscle pain Psychiatric: No depression symptoms, No anxiety Objective Vital Signs Date Time Temp Pulse Resp B/P (MAP) Pulse Ox O2 Delivery O2 Flow Rate FiO2 06/24/18 15:02 37.6 96 18 126/80 (95) 97 Room Air 06/24/18 09:00 Room Air 06/24/18 07:07 36.9 80 18 129/78 (95) 97 06/23/18 22:54 36.8 94 22 131/83 (99) 97 Room Air 06/23/18 21:56 Room Air 06/23/18 18:13 38.2 Physical Exam General Appearance: WD/WN, + mild distress Eyes: normal inspection, sclerae normal Neck: supple, no JVD Respiratory/Chest: chest non-tender, lungs clear Cardiovascular: regular rate, rhythm, no murmur Abdomen: normal bowel sounds, non tender, soft Extremities: no pedal edema, no calf tenderness Neurologic/Psychiatric: alert, oriented x 3 Laboratory Results Last 24 Hours Test 06/23/18 17:25 06/24/18 06:17 Sodium Level 142 mmol/L 143 mmol/L Potassium Level 3.9 mmol/L 3.6 mmol/L Chloride Level 114 mmol/L 112 mmol/L Carbon Dioxide Level 20 mmol/L 23 mmol/L Anion Gap 8.0 mmol/L 8.0 mmol/L Blood Urea Nitrogen 8 mg/dl 9 mg/dl Creatinine 1.04 mg/dl 0.67 mg/dl Est Creatinine Clear Calc Drug Dose 63.9 ml/min 99.1 ml/min Estimated GFR () 86.9 116.9 Estimated GFR (Non- 75.0 100.8 BUN/Creatinine Ratio 7.9 13.3 Random Glucose 112 mg/dl 99 mg/dl Calcium Level 7.9 mg/dl 7.8 mg/dl Total Bilirubin 0.8 mg/dl Aspartate Amino Transf (AST/SGOT) 79 U/L Alanine Aminotransferase (ALT/SGPT) 41 U/L Alkaline Phosphatase 82 U/L Total Protein 6.5 gm/dl Albumin 2.9 gm/dl Globulin 3.6 gm/dl Albumin/Globulin Ratio 0.8 Total Creatine Kinase 1735 U/L Assessment and Plan 67 y/o M Presents from a mental health facility for multiple unwitnessed falls , has a history of BPH, GERD, depression and psychosis. A skeletal survey including a head CT did not reveal any fractures, although multiple contusions are confirmed. Initial labs are notable for rhabdomyolysis. He was transferred from the [facility] after voluntarily committing himself for depression, suicidal ideation and hallucinations. did have fevers for one day, negative cultures to date, cxr may suggest an pneumonitis is on [place] and contusions - the distribution of injury is suspicious for self- inflicted injury. PT/OT will be consulted to assess his gait. will need some metal forger's assistant device Possible Cellulitis associated with his trauma, Has been ruled out, fever felt to be secondary to pneumonitis Rhabdomyolysis from tissue trauma - IVF continues, mild to moderate rhabdo and no renal affects Psychosis - depression - he arrives on Zyprexa, Risperdal and Remeron. will have psychiatry evaluation to determine fitness to make decisions and help with medical management, did reduce doses and will have psychiatry have further evaluation of meds and dosing BPH - cont Flomax GERD - cont PPi Full code - SCDs
[2018-06-24] MEDS: OLANZAPINE ZYDIS 5 MG ORALLY DIS. TAB PO PRN (18:14)
[2018-06-24] MEDS ORDERED: NURSING VERBAL MED ORDER ONE (18:15)
[2018-06-24] MEDS: OLANZAPINE 10 MG TAB PO SCH (20:55)
[2018-06-24 23:55] VITALS: BP 145/87; PULSE 102; TEMP 36.6; O2SAT 96
[2018-06-25 07:28] LABS: CREATININE 0.65 mg/dl (0.60-1.40)
[2018-06-25 07:29] LABS: CALCIUM 8.5 mg/dl (8.5-10.1); POTASSIUM 3.6 mmol/L (3.5-5.1)
[2018-06-25] MEDS: PANTOprazole SOD 40 MG TAB PO SCH (07:46)
[2018-06-25] MEDS: PSYLLIUM 58.6% PWD PACK S\\F PO SCH (07:46)
[2018-06-25] MEDS: DOCUSATE SODIUM 100 MG CAP PO SCH (07:46)
[2018-06-25] MEDS: TAMSULOSIN HCL 0.4 MG CAP PO SCH (07:46)
[2018-06-25] MEDS: LEVOFLOXACIN 750 MG TAB PO SCH (07:46)
[2018-06-25 08:00] VITALS: BP 102/70; PULSE 92; TEMP 36.8; O2SAT 96
[2018-06-25] MEDS: THIAMINE HCL 100 MG TAB PO SCH (08:51)
[2018-06-25] MEDS: OLANZAPINE ZYDIS 5 MG ORALLY DIS. TAB PO PRN (09:18)
[2018-06-25] MEDS ORDERED: LVQ750 PO ×2 (11:57)
--- NOTE | 2018-06-25 11:58 | Discharge Instructions ---
Discharge Instructions Date of Service Jun 25, 2018. Admission Reason for Admission: Multiple Falls, Rhabdomyolysis Discharge Discharge Diagnosis / Problem: falls, rhabdomyolysis improving, bronchitis improving Discharge Goals Goal(s): Diagnostic testing, Therapeutic intervention Activity Recommendations Activity Limitations: as noted below Lifting Limitations: gradually increase as tolerated . Current Hospital Diet Patient's current hospital diet: Regular Diet Discharge Diet Recommended Diet: Regular Diet Pending Studies Studies pending at discharge: no Medical Emergencies . Who to Call and When: Medical Emergencies: If at any time you feel your situation is an emergency, please call 911 immediately. . Non-Emergent Contact Non-Emergency issues call your: Primary Care Provider, Specialist (psychaitrist ) Call Non-Emergent contact if: temperature is above 101, your pain is not controlled . . "Provider Documentation" section prepared by Ozzie Flores. .
--- NOTE | 2018-06-25 12:23 | Psychiatric Consultation ---
Psychiatric Consultation Date of Service: Jun 25, 2018. Saw and assessed pt with Ernesto Doran, psychiatric nurse liaison. Last night pt bit into a soda can and superficially cut his lip with the edge of the soda can. He received a prn Zyprexa 5mg dose with it calming him and making him a bit tired. he obtained another prn Zyprexa 5pmg prn dose this morning to due to AH with some drowsiness noted after dose. During time of assessment, pt continued to endorsed ongoing depression and SI with plan to jump off a bridge. He endorsed AH which are described as command in nature with pt not willing to exonerate. Pt reports finding the Ah distressing to him. He is unable to contract for safety outside the hospital setting. He agrees to not hurt himself while in the hospital. He is refusing inpatient psychiatric treatment. He is not able to address preferred plans and instead shuts down and seek the assessment to end. He puts his hands up in a stopping motion at times of trying to engage with him. He wipes his R eye, glass eye, with a tissue at times once starts to shut down. He is with depressed, flat affect congruent with mood, fair to poor eye contact, short concise answers prior to shutting down with then minimal speech at that point. AH as above. SI as above. A: schizoaffective d/o psychotic features present with severe depressive symptoms and SI with plan to jump in front of bridge with abrupt self Hamming behavior yesterday early evening. He was on a 201 admission to the [facility], transferred to [facility] medical for treatment of rhabdomyolysis and recent falls and is being medical cleared and now refusing psychiatric inpatient treatment. P: [facility] has a bed but is requiring a new 201 vol commitment or a 302 invol commitment. Given pt is not willing to sign in as a voluntary and is a danger to himself with his SI with plan and psychotic features and self harming behavior and unable to contract for safety outside the hospital along with his limited engagement in assessment/treatment planning a petition was completed by Dr. Flores and a certificate was completed by this travel writer. Pt is expected to be transferred to the [facility] for the inpt psychiatric 302 invol commitment with [facility] being aware and accepting. for now continue zyprexa 10mg hs and zyprexa 5mg bid prn agitation/psychosis and remeron 7.5mg hs
[2018-06-25 12:39] VITALS: BP 102/70; PULSE 92; TEMP 36.8; O2SAT 96
[2018-06-25 15:36] VITALS: BP 116/76; PULSE 89; TEMP 37; O2SAT 97
--- NOTE | 2018-06-25 16:02 | Discharge Summary ---
Discharge Summary Date of Service Jun 25, 2018. Discharge Summary Admission Date: Jun 21, 2018 at 16:37 Discharge Date: Jun 25, 2018 Discharge Disposition: Acute care mental health Principal Diagnosis: rhabodmyolysis, bronchitis Consultations: Psychiatric Medication Reconciliation New Medications: Levofloxacin (Levofloxacin) 750 Mg Tab 750 MG PO DAILY@11, #5 TAB Continued Medications: Acetaminophen Tab (Tylenol) 325 Mg Tab 650 MG PO Q4 PRN for Pain, TAB Alum & Mag Hydrox-Simethicone (Mylanta) 1 Jennifer Jennifer 30 ML PO QID PRN for GASTRIC DISTRESS Docusate Sodium (Colace) 100 Mg Cap 1 CAP PO BID for 30 Days, #60 CAP Folic Acid (Folic Acid) 1 Mg Tab 1 MG PO DAILY Magnesium Hydroxide (Milk Of Magnesia) 30 Ml Susp 30 ML PO DAILY PRN for Constipation, ML Multivitamins/Minerals (Mvi With Minerals) Tab 1 TAB PO DAILY, TAB Olanzapine (Zyprexa) 10 Mg Tab 10 MG PO HS, TAB Omeprazole (Prilosec) 20 Mg Capcr 20 MG PO DAILY, CAP Psyllium (Metamucil) 48.57 % Pow 1 PKT PO DAILY Risperidone (Risperdal) 1 Mg Tab 1 MG PO HS, TAB Sennosides (Senokot) 8.6 Mg Tab 1 TAB PO Q12 PRN for , TAB Tamsulosin Hcl (Flomax) 0.4 Mg Cap 0.4 MG PO QAM, CAP Thiamine Hcl (Vitamin B-1) 100 Mg Tab 100 MG PO DAILY, TAB Discontinued Medications: Mirtazapine (Remeron) 15 Mg Tab 7.5 MG PO HS, TAB Discharge Exam Review of Systems: Constitutional: No fever, No chills Respiratory: No cough, No shortness of breath Cardiovascular: No chest pain, No orthopnea Abdomen: No pain, No nausea, No diarrhea Genitourinary - Male: No hematuria, No dysuria Neurologic: No memory loss, No numbness/tingling Psychiatric: No depression symptoms, No anhedonism, No anxiety Physical Exam: General Appearance: WD/WN, + mild distress Eyes: normal inspection, sclerae normal Neck: supple, no JVD Respiratory/Chest: chest non-tender, lungs clear, normal breath sounds Cardiovascular: regular rate, rhythm, no murmur Abdomen / GI: normal bowel sounds, non tender, soft Neurologic/Psychiatric: alert, oriented x 3 Hospital Course 67 y/o M Presents from a mental health facility for multiple unwitnessed falls , has a history of BPH, GERD, depression and psychosis. A skeletal survey including a head CT did not reveal any fractures, although multiple contusions are confirmed. Initial labs are notable for rhabdomyolysis, this has had great improvement and he has not had any renal distress . He was transferred from the [facility] after voluntarily committing himself for depression, suicidal ideation and hallucinations. did have fevers for one day, negative cultures to date, cxr may suggest an bronchitis improved on [place] and contusions - the distribution of injury is suspicious for self- inflicted injury. Rhabdomyolysis from tissue trauma - IVF continues, mild to moderate rhabdo and no renal affects Psychosis - depression - he arrives on Zyprexa, Risperdal and Remeron. Did have 2 person 302 for suicidal ideation that continues along with hallucinations and a plan to jump off bridge BPH - cont Flomax GERD - cont PPi Total Time Spent: Greater than 30 minutes This includes examination of the patient, discharge planning, medication reconciliation, and communication with other providers. Discharge Instructions Please refer to the electronic Patient Visit Report (Discharge Instructions) for additional information.
== END 2018-06-25 16:32 | DRG 566 ==
LOC: C.EDC 10:42 → C.4E 16:37 → ENRESERV 17:03
PROVIDERS: ADMIT Internal Medicine; ATTEND Internal Medicine
DX: T79.6XXA Traumatic ischemia of muscle, initial encounter (principal); J40 Bronchitis, not specified as acute or chronic; R29.6 Repeated falls; F25.9 Schizoaffective disorder, unspecified; S40.021A Contusion of right upper arm, initial encounter; S40.022A Contusion of left upper arm, initial encounter; S80.11XA Contusion of right lower leg, initial encounter; S80.12XA Contusion of left lower leg, initial encounter; Y92.199 Unspecified place in other specified residential institution as the place of occurrence of the external cause; W06.XXXA Fall from bed, initial encounter; N40.0 Benign prostatic hyperplasia without lower urinary tract symptoms; K21.9 Gastro-esophageal reflux disease without esophagitis; Z87.891 Personal history of nicotine dependence; X83.8XXA Intentional self-harm by other specified means, initial encounter

== ENCOUNTER 2018-06-28 13:02 | Emergency (ER) | payer BC, OTHER ==
[~2018-06-28] VITALS: Ht 167.6 cm; Wt 61.2 kg
[~2018-06-28 13:02] MED LIST: ACET-1693 PO; ALUM-30 PO; DOCU-94 PO; FLV1 PO; LVQ750 PO; MIRT15TA3 PO; MOML PO; MULT-513 PO; OLAN10TA11 PO; PRLSR20 PO; PSYL48.59 PO; RISP1TAB68 PO; SENN-63 PO; TAMS0.4C38 PO; THIA100T10 PO
[2018-06-28 13:13] VITALS: TEMP 36.9; Ht 167.6 cm; Wt 61.2 kg
[2018-06-28] MEDS ORDERED: SODIUM CHLORIDE 0.9% 500ML 500 ML IV STA (13:45)
[2018-06-28] MEDS ORDERED: SODIUM CHLORIDE 0.9% 1000ML 1,000 ML IV STA (13:45)
--- NOTE | 2018-06-28 14:05 | DIAGNOSTIC IMAGING REPORT ---
CHEST ONE VIEW PORTABLE HISTORY: 67 years-old Male AMS, weakness acutely altered mental status with weakness. COMPARISON: Chest radiographs 06/23/2018 TECHNIQUE: Portable AP view of the chest FINDINGS: Cardiac silhouette is within normal limits in size. Postoperative changes of the right lung with chronic blunting of the right costophrenic angle redemonstrated. Mild right hemidiaphragmatic elevation with subsegmental right perihilar and right basilar opacities appearing unchanged. Volume loss of the right lung is also noted. No pneumothorax or large pleural effusion. Unchanged subsegmental atelectasis or scarring of the left lung base. Hazy right perihilar opacity appears improved from prior. Calcification of the aorta. Multiple remote left-sided rib fractures. Degenerative changes of the shoulders and spine. IVC filter noted. Surgical coils and clips project over the right subdiaphragmatic distribution. IMPRESSION: 1. Improved aeration about the right perihilar distribution suggesting resolving pneumonitis. 2. Chronic postoperative changes about the right lung. The above report was generated using voice recognition software. It may contain grammatical, syntax or spelling errors. Electronically signed by: Anastacio Peña M.D. 06/28/2018 2:04 PM Dictated Date/Time: 06/28/2018 2:01 PM
--- NOTE | 2018-06-28 14:20 | EMERGENCY ROOM VISIT NOTE ---
History Report prepared by Erin: Jaquelin Jones Under the Supervision of: Dr. Ioana Escalona M.D. First contact with patient: 13:25 Chief Complaint: FALL Stated Complaint: DOCUMENTED IN PROGRESS NOTES [facility] History of Present Illness The patient is a 67 year old male who presents to the Emergency Room from [place] after records show he has been repeatedly hitting his head off of the floor. [place] records say that the patient has been somnolent and is not eating or drinking. They also state that he is unable to find the cafeteria. The patient's records state that he was recently admitted one week ago for multiple falls, dehydration, and rhabdomyolysis. The patient 's records show that he was at [place] at that time. Per the patient's records he was discharged three days ago back to [place] and is now banging his head off the ground. Per the patient's records, his total CK is elevated up to 3500. The patient states that he hits his head on purpose. The patient states that he lives alone in [place]. History limited by AMS. Source of History: patient, transfer records History Limited By: AMS Position: head Quality: other (hitting on the floor) Review of Systems See HPI for pertinent positives & negatives. A total of 10 systems reviewed and were otherwise negative. Past Medical & Surgical Medical Problems: (1) No known problems (2) Schizoaffective disorder Family History Patient reports no known family medical history. Social History Smoking Status: Former Smoker Marital Status: Housing Status: assisted living Occupation Status: retired Current/Historical Medications Scheduled Docusate Sodium (Colace), 1 CAP PO BID Folic Acid (Folic Acid), 1 MG PO DAILY Levofloxacin (Levofloxacin), 750 MG PO DAILY@11 Lorazepam (Ativan), 1 MG PO BID Lorazepam (Ativan), 0.5 MG PO BID Mirtazapine (Remeron), 15 MG PO HS Multivitamins/Minerals (Mvi With Minerals), 1 TAB PO DAILY Nutritional Supplements (Boost), 1 CAN PO TID Olanzapine (Zyprexa), 10 MG PO HS Omeprazole (Prilosec), 20 MG PO DAILY Psyllium (Metamucil), 1 PKT PO DAILY Tamsulosin Hcl (Flomax), 0.4 MG PO QAM Thiamine Hcl (Vitamin B-1), 100 MG PO DAILY Scheduled PRN Alum & Mag Hydrox-Simethicone (Mylanta), 30 ML PO QID PRN for GASTRIC DISTRESS Magnesium Hydroxide (Milk Of Magnesia), 30 ML PO DAILY PRN for Constipation Sennosides (Senokot), 1 TAB PO Q12 PRN for Allergies Coded Allergies: No Known Allergies (Unverified , 06/28/18) Physical Exam Vital Signs Date Time Temp Pulse Resp B/P (MAP) Pulse Ox O2 Delivery O2 Flow Rate FiO2 06/28/18 18:53 79 18 111/65 98 06/28/18 17:57 75 06/28/18 16:32 79 18 120/76 100 Room Air 06/28/18 13:50 81 20 114/73 94 Room Air 06/28/18 13:49 85 06/28/18 13:13 36.9 99 20 92/72 96 Room Air Physical Exam Vital signs reviewed. General: Chronically ill-appearing 67-year-old male, in no significant distress. HEENT: No scleral icterus, PERRLA, neck supple. Ecchymosis noted on the forehead. Periorbitals bilaterally. Appears to be healing.. Cardiovascular: Regular rate and rhythm, no extra sounds. Pulmonary: Clear to auscultation bilaterally, normal work of breathing. Abdomen: Soft, nontender, nondistended, positive bowel sounds. Musculoskeletal: Atraumatic, no peripheral edema. Neurologic: Somnolent. Arousable by gentle physical stimuli. Falls asleep quickly. Slurred speech. Cranial nerves 2 through 12 grossly intact. Skin: Warm, dry, no rash Medical Decision & Procedures ER Provider Diagnostic Interpretation: Radiology results as stated below per my review and radiologist interpretation: HEAD WITHOUT CONTRAST (CT) CLINICAL HISTORY: 67 years-old Male with CHI. Acute head trauma with acute headache TECHNIQUE: Multiple axial CT images of the head were obtained without contrast. A dose lowering technique was utilized adhering to the principles of ALARA. CT DOSE: 655.73 mGy.cm COMPARISON: CT head 06/21/2018. FINDINGS: No acute intracranial hemorrhage, midline shift, intracranial mass, hydrocephalus, territorial ischemia or abnormal extra-axial collection. Minimal white matter hypodensities suggests chronic microvascular ischemic changes. Senescent calcifications about the basal ganglia. The calvarium is intact. The paranasal sinuses, mastoid air cells, and middle ear cavities are clear. Right globe prosthesis redemonstrated. Rightward bowing and spurring of the nasal septum. Soft tissues and left orbit are unremarkable. Decreased size of the left frontotemporal scalp hematoma/contusion. IMPRESSION: 1. No acute intracranial abnormality or calvarial fracture. 2. Decreased size of the left frontotemporal scalp contusion/hematoma. The above report was generated using voice recognition software. It may contain grammatical, syntax or spelling errors. Electronically signed by: Anastacio Peña M.D. 06/28/2018 2:52 PM Dictated Date/Time: 06/28/2018 2:49 PM CHEST ONE VIEW PORTABLE HISTORY: 67 years-old Male AMS, weakness acutely altered mental status with weakness. COMPARISON: Chest radiographs 06/23/2018 TECHNIQUE: Portable AP view of the chest FINDINGS: Cardiac silhouette is within normal limits in size. Postoperative changes of the right lung with chronic blunting of the right costophrenic angle redemonstrated. Mild right hemidiaphragmatic elevation with subsegmental right perihilar and right basilar opacities appearing unchanged. Volume loss of the right lung is also noted. No pneumothorax or large pleural effusion. Unchanged subsegmental atelectasis or scarring of the left lung base. Hazy right perihilar opacity appears improved from prior. Calcification of the aorta. Multiple remote left-sided rib fractures. Degenerative changes of the shoulders and spine. IVC filter noted. Surgical coils and clips project over the right subdiaphragmatic distribution. IMPRESSION: 1. Improved aeration about the right perihilar distribution suggesting resolving pneumonitis. 2. Chronic postoperative changes about the right lung. The above report was generated using voice recognition software. It may contain grammatical, syntax or spelling errors. Electronically signed by: Anastacio Peña M.D. 06/28/2018 2:04 PM Dictated Date/Time: 06/28/2018 2:01 PM Laboratory Results 06/28/18 14:04 Red Blood Count 3.53, Mean Corpuscular Volume 87.8, Mean Corpuscular Hemoglobin 28.9, Mean Corpuscular Hemoglobin Concent 32.9, Mean Platelet Volume 9.1, Neutrophils (%) (Auto) 68.8, Lymphocytes (%) (Auto) 20.6, Monocytes (%) (Auto) 6.6, Eosinophils (%) (Auto) 3.4, Basophils (%) (Auto) 0.3, Neutrophils # (Auto) 4.41, Lymphocytes # (Auto) 1.32, Monocytes # (Auto) 0.42, Eosinophils # (Auto) 0.22, Basophils # (Auto) 0.02 06/28/18 14:04 Test 06/28/18 14:04 06/28/18 14:15 White Blood Count 6.41 K/uL (4.8-10.8) Red Blood Count 3.53 M/uL (4.7-6.1) Hemoglobin 10.2 g/dL (14.0-18.0) Hematocrit 31.0 % (42-52) Mean Corpuscular Volume 87.8 fL (80-100) Mean Corpuscular Hemoglobin 28.9 pg (25-34) Mean Corpuscular Hemoglobin Concent 32.9 g/dl (32-36) Platelet Count 270 K/uL (130-400) Mean Platelet Volume 9.1 fL (7.4-10.4) Neutrophils (%) (Auto) 68.8 % Lymphocytes (%) (Auto) 20.6 % Monocytes (%) (Auto) 6.6 % Eosinophils (%) (Auto) 3.4 % Basophils (%) (Auto) 0.3 % Neutrophils # (Auto) 4.41 K/uL (1.4-6.5) Lymphocytes # (Auto) 1.32 K/uL (1.2-3.4) Monocytes # (Auto) 0.42 K/uL (0.11-0.59) Eosinophils # (Auto) 0.22 K/uL (0-0.5) Basophils # (Auto) 0.02 K/uL (0-0.2) RDW Standard Deviation 48.8 fL (36.4-46.3) RDW Coefficient of Variation 15.1 % (11.5-14.5) Immature Granulocyte % (Auto) 0.3 % Immature Granulocyte # (Auto) 0.02 K/uL (0.00-0.02) Anion Gap 7.0 mmol/L (3-11) Est Creatinine Clear Calc Drug Dose 78.7 ml/min Estimated GFR () 108.1 Estimated GFR (Non- 93.3 BUN/Creatinine Ratio 21.7 (10-20) Calcium Level 7.9 mg/dl (8.5-10.1) Magnesium Level 2.1 mg/dl (1.8-2.4) Total Bilirubin 1.1 mg/dl (0.2-1) Direct Bilirubin 0.3 mg/dl (0-0.2) Aspartate Amino Transf (AST/SGOT) 62 U/L (15-37) Alanine Aminotransferase (ALT/SGPT) 52 U/L (12-78) Alkaline Phosphatase 85 U/L (45-117) Total Creatine Kinase 1467 U/L (39-308) Total Protein 6.7 gm/dl (6.4-8.2) Albumin 2.7 gm/dl (3.4-5.0) Lipase 121 U/L (73-393) Thyroid Stimulating Hormone (TSH) 0.446 uIu/ml (0.300-4.500) Salicylates Level < 1.7 mg/dl (2.8-20) Acetaminophen Level < 2 ug/ml (10-30) Ethyl Alcohol mg/dL < 3.0 mg/dl (0-3) Urine Color DK YELLOW Urine Appearance CLEAR (CLEAR) Urine pH 5.5 (4.5-7.5) Urine Specific [place] 1.022 (1.000-1.030) Urine Protein NEG (NEG) Urine Glucose (UA) NEG (NEG) Urine Ketones NEG (NEG) Urine Occult Blood NEG (NEG) Urine Nitrite NEG (NEG) Urine Bilirubin NEG (NEG) Urine Urobilinogen NEG (NEG) Urine Leukocyte Esterase NEG (NEG) Laboratory results per my review. Medications Administered Medications (Trade) Dose Ordered Sig/Eric Route Start Time Stop Time Status Last Admin Dose Admin Sodium Chloride 1,000 ml @ 200 mls/hr Q5H STAT IV 06/28/18 13:45 06/28/18 18:44 DC 06/28/18 16:32 200 MLS/HR Sodium Chloride 500 ml @ 999 mls/hr Q31M STAT IV 06/28/18 13:45 06/28/18 14:15 DC 06/28/18 14:43 999 MLS/HR ECG Per My Interpretation Indication: altered mental status Rate (beats per minute): 83 Rhythm: normal sinus Findings: RBBB (incomplete), no ectopy, other (no acute ischemia ) ED Course 1342: Past medical records reviewed. The patient was evaluated in room B8. A complete history and physical examination was performed. 1345: Ordered Sodium Chloride 500 ml @ 999 mls/hr IV and Sodium Chloride 1000 ml @ 200 mls/hr IV. 1855: Upon reevaluation, the patient appeared to be stable for transfer back [place]. Medical Decision Differential diagnosis: Etiologies such as metabolic, infection, hypoglycemia, electrolyte abnormalities , cardiac sources, intracerebral event, toxicologic, neurologic, as well as others were entertained. This patient was evaluated and appeared to be in no significant distress. IV access was obtained and laboratory work was drawn. The patient was hydrated with normal saline solution. He is arousable and answers some questions. CT scan of the head was performed and is negative. Laboratory work reveals a drop in the patient's hemoglobin up to points from his previous hospitalization. CK is elevated however improved from previous. I suspect the patient has been hydrated to account for the hemoglobin drop as he does not take blood thinners has no vomiting or diarrhea. In fact, staff states that he is not eating or drinking. According to records from patient's previous hospitalization, it appears to be psychiatric in nature. I do believe he is stable to return to the [facility] but will require more intensive one-on-one care. He may require transfer to a psychiatric facility for geriatric patients. Patient was transferred back to the [facility] on his [facility] for further care and will return to the emergency department for worsening of symptoms or any medical concerns. Medication Reconcilliation Current Medication List: was personally reviewed by me Blood Pressure Screening Patient's blood pressure: Normal blood pressure Impression Primary Impression: Schizoaffective disorder Additional Impressions: Somnolence Anemia Elevated CK Scribe Attestation The scribe's documentation has been prepared under my direction and personally reviewed by me in its entirety. I confirm that the note above accurately reflects all work, treatment, procedures, and medical decision making performed by me. Departure Information Dispostion Mental Health Acute Care Referrals No Doctor, Assigned (PCP) Forms HOME CARE DOCUMENTATION FORM, IMPORTANT VISIT INFORMATION Patient Instructions My [facility] Additional Instructions Diagnosis: Schizoaffective disorder, somnolence Please consider one-on-one care for this patient to ensure adequate oral intake of food and fluids. Consider whether or not this patient requires geriatric psych unit. Return to the emergency department for worsening of symptoms or any medical concerns. Problem Qualifiers
[2018-06-28 14:23] LABS: BASO % 0.3 %; BASO ABS # 0.02 K/uL (0-0.2); EOS % 3.4 %; EOS ABS # 0.22 K/uL (0-0.5); HEMOGLOBIN 10.2 g/dL (14.0-18.0); IG# 0.02 K/uL (0.00-0.02); LYMPH % 20.6 %; LYMPH ABS # 1.32 K/uL (1.2-3.4); MEAN CELL VOLUME 87.8 fL (80-100); MEAN CORPUSCULAR HEMOGLOBIN 28.9 pg (25-34); MEAN CORPUSCULAR HGB CONC 32.9 g/dl (32-36); MEAN PLATELET VOLUME 9.1 fL (7.4-10.4); MONO % 6.6 %; MONO ABS # 0.42 K/uL (0.11-0.59); NEUT % 68.8 %; NEUT ABS # 4.41 K/uL (1.4-6.5); PLATELET COUNT 270 K/uL (130-400); RED CELL DISTRIBUTION WIDTH CV 15.1 % (11.5-14.5); RED CELL DISTRIBUTION WIDTH SD 48.8 fL (36.4-46.3); WHITE BLOOD COUNT 6.41 K/uL (4.8-10.8)
--- NOTE | 2018-06-28 14:53 | DIAGNOSTIC IMAGING REPORT ---
HEAD WITHOUT CONTRAST (CT) CLINICAL HISTORY: 67 years-old Male with CHI. Acute head trauma with acute headache TECHNIQUE: Multiple axial CT images of the head were obtained without contrast. A dose lowering technique was utilized adhering to the principles of ALARA. CT DOSE: 655.73 mGy.cm COMPARISON: CT head 06/21/2018. FINDINGS: No acute intracranial hemorrhage, midline shift, intracranial mass, hydrocephalus, territorial ischemia or abnormal extra-axial collection. Minimal white matter hypodensities suggests chronic microvascular ischemic changes. Senescent calcifications about the basal ganglia. The calvarium is intact. The paranasal sinuses, mastoid air cells, and middle ear cavities are clear. Right globe prosthesis redemonstrated. Rightward bowing and spurring of the nasal septum. Soft tissues and left orbit are unremarkable. Decreased size of the left frontotemporal scalp hematoma/contusion. IMPRESSION: 1. No acute intracranial abnormality or calvarial fracture. 2. Decreased size of the left frontotemporal scalp contusion/hematoma. The above report was generated using voice recognition software. It may contain grammatical, syntax or spelling errors. Electronically signed by: Anastacio Peña M.D. 06/28/2018 2:52 PM Dictated Date/Time: 06/28/2018 2:49 PM
[2018-06-28 14:57] LABS: ALBUMIN 2.7 gm/dl (3.4-5.0); CALCIUM 7.9 mg/dl (8.5-10.1); CREATININE 0.81 mg/dl (0.60-1.40); POTASSIUM 3.8 mmol/L (3.5-5.1)
[2018-06-28 14:59] LABS: TOTAL PROTEIN 6.7 gm/dl (6.4-8.2)
[2018-06-28] MEDS ORDERED: MIRT15TA3 PO (16:43)
[2018-06-28] MEDS ORDERED: NUTR-7 PO (16:43)
[2018-06-28] MEDS ORDERED: ATV/1 PO (16:43)
[2018-06-28] MEDS ORDERED: LORA-741 PO (16:43)
[2018-06-28 18:53] VITALS: BP 111/65; PULSE 79; O2SAT 98
== END 2018-06-28 19:02 | disposition home or self-care (01) ==
LOC: C.EDB 13:03
DX: F25.9 Schizoaffective disorder, unspecified (principal); R40.0 Somnolence; D64.9 Anemia, unspecified; R74.8 Abnormal levels of other serum enzymes; S00.93XA Contusion of unspecified part of head, initial encounter; W22.8XXA Striking against or struck by other objects, initial encounter; R63.0 Anorexia; Z87.891 Personal history of nicotine dependence; Z79.899 Other long term (current) drug therapy